=== PATIENT | male | born 1960 | race Caucasian/White ===

== ENCOUNTER → 2023-07-13 | Day surgery (SDC) | payer OTHER ==
[~2023-07-13] VITALS: Ht 167.6 cm; Wt 71.7 kg
[~2023-07-13] MED LIST: ADVI200T PO; LIDOCAINE 2% 100MG/5ML SDV (FOR ANES.) As Ordered ONE; NS 1,000 ML IV ONE; propofoL 200 MG/20 ML VIAL As Ordered ONE
[2023-07-13 07:57] VITALS: BP 120/82; TEMP 97.2; O2SAT 96
== END | disposition home or self-care (01) ==
LOC: M OPP 06:42
PROVIDERS: ATTEND Surgery
DX: Z12.11 Encounter for screening for malignant neoplasm of colon (principal); D12.6 Benign neoplasm of colon, unspecified; K57.30 Diverticulosis of large intestine without perforation or abscess without bleeding; M19.90 Unspecified osteoarthritis, unspecified site; Z79.899 Other long term (current) drug therapy